=== PATIENT | female | born 1940 | race Caucasian/White ===

== ENCOUNTER → 2016-12-13 | Outpatient (CLI) | payer MEDICARE, BC, OTHER ==
--- NOTE | 2016-12-13 09:29 | CT ---
EXAMINATION TYPE: CT abdomen pelvis w con DATE OF EXAM: 12/13/2016 8:37 AM COMPARISON: Ultrasound abdomen 2016 2015 HISTORY: Bilateral flank pain, side pain CT DLP: 1398 mGycm Automated exposure control for dose reduction was used. TECHNIQUE: Helical acquisition of images was performed from the lung bases through the pelvis. CONTRAST: Performed with Oral Contrast and with IV Contrast, patient injected with 80 mL of Visipaque 320. FINDINGS: LUNG BASES: No significant abnormality is appreciated. Heart size is borderline enlarged LIVER/GB: The liver shows no mass, mild ductal dilation likely due to postcholecystectomy change. Low -attenuation in the liver may be due to fatty infiltration or hepatocellular disease. PANCREAS: No significant abnormality is seen. Duodenal diverticulum is suspected at the second and th ird portion of the duodenum SPLEEN: No significant abnormality is seen. ADRENALS: No significant abnormality is seen. KIDNEYS: Calcification present at the lower pole of the left kidney measures approximately 5 mm RETROPERITONEAL ADENOPATHY: None visualized REPRODUCTIVE ORGANS: No significant abnormality is seen URINARY BLADDER: No significant abnormality is seen. PELVIC ADENOPATHY: None visualized. OSSEOUS STRUCTURES: Patient is post right hip prosthesis. Some artifact is present. Sclerosis presen t at the sacroiliac joints left greater than right may be due to degenerative change. Degenerative di sc changes in the visualized spine, there is a spinal curvature. Associated facet arthropathy change results in some spinal stenosis in the lower lumbar spine. BOWEL: Some bowel wall thickening is present at the third and fourth portion of the duodenum, proxim al jejunum possibly due to an underlying enteritis. There is an ostomy in the left lower quadrant, re ctal stump is present in the pelvis. Diverticular changes associated with the colon. Partial colectom y change is present. OTHER: There may be a small hiatal hernia. IMPRESSION: DIVERTICULOSIS, POSTOP CHANGES, CORRELATE FOR POSSIBLE ENTERITIS. DEGENERATIVE DISC DISEASE AND SPINA L STENOSIS. POSSIBLE FATTY INFILTRATION OF THE LIVER AND ADDITIONAL FINDINGS ABOVE. NONOBSTRUCTIVE NE PHROLITHIASIS ON THE LEFT.
== END ==
LOC: RADCTMAIN 07:25
PROVIDERS: ATTEND Family Medicine
DX: N20.0 Calculus of kidney (principal); K57.90 Diverticulosis of intestine, part unspecified, without perforation or abscess without bleeding; M54.5 Low back pain
CPT/HCPCS: 82565; 84520; 74177; 36415; Q9967

== ENCOUNTER 2017-09-03 17:24 | Inpatient (IN) | payer MEDICARE, BC ==
--- NOTE | 2017-09-03 18:12 | ED ---
General Adult HPI - General Chief complaint: Weakness Stated complaint: decreased mobility Time Seen by Provider: 09/03/17 17:45 Source: patient, RN notes reviewed, old records reviewed Mode of arrival: ambulatory Limitations: no limitations - History of Present Illness Initial comments: Patient is 77-year-old female who presents emergency room today with a chief complaint of increased weakness. She does admit that she was recently seen and hospitalized and released for a COPD exacerbation. States she was told she had pneumonia. States that she's been on some antibiotics. States that she was in the hospital for approximately a week. Patient states that she's been home for the last day. She states that she feels like her legs are weaker. She states she feels that she cannot stand on her own without assistance. She states usually does use a walker at home but even with the walker is having a difficult time with ambulation. Patient states that when she was in the hospital they did discuss about going to a rehab facility. States she was stubborn other times does not want go wanted to go home to her house. She states she feels that she should be placed in rehab due to this weakness. She does admit that the cough congestion has improved. States she's currently still on antibiotics. She has been using her nebulizer at home improvement. Patient denies any recent fever, chills, shortness of breath, chest pain, back pain, abdominal pain, nausea or vomiting, numbness or tingling, dysuria or hematuria, constipation or diarrhea, headaches or visual changes, or any other complaints. - Related Data Home Medications Medication Instructions Recorded Confirmed ALPRAZolam [Xanax] 0.5 mg PO DAILY PRN 01/27/14 09/03/17 Albuterol Inhaler [Ventolin Hfa 2 puff INHALATION RT-Q6H PRN 06/17/16 09/03/17 Inhaler] Albuterol Nebulized [Ventolin 2.5 mg INHALATION RT-QID 06/17/16 09/03/17 Nebulized] INSULIN LISPRO (HumaLOG) [humaLOG] See Protocol SQ AC-TID 10/22/16 09/03/17 Insulin Glargine [Lantus] 87 unit SQ HS 10/22/16 09/03/17 Hydrocodone/Acetaminophen [[place] 1 tab PO TID PRN 08/25/17 09/03/17 5-325] Lisinopril [Prinivil] 5 mg PO DAILY 08/25/17 09/03/17 Rivaroxaban [Xarelto] 15 mg PO QAM 08/25/17 09/03/17 Furosemide [Lasix] 80 mg PO QAM 09/03/17 09/03/17 methylPREDNISolone Dose Pack See Taper PO DAILY 09/03/17 09/03/17 [Medrol Dose Pack] Previous Rx's Medication Instructions Recorded Atorvastatin [Lipitor] 40 mg PO HS #30 tab 06/20/16 Potassium Chloride ER [K-Dur 20] 20 meq PO BID tab.er.prt 06/20/16 Azithromycin [Zithromax] 500 mg PO Q24H #7 tab 09/01/17 Budesonide-Formot 160-4.5 Mcg 2 puff INHALATION RT-BID #1 puff 09/01/17 [Symbicort 160-4.5 Mcg Inhaler] Cephalexin [Keflex] 500 mg PO Q6HR #40 cap 09/01/17 Colchicine [Colcrys] 0.6 mg PO BID tab 09/01/17 Ipratropium-Albuterol Nebulize 3 ml INHALATION RT-QID #120 09/01/17 [Duoneb 0.5 mg-3 mg/3 ml Soln] ampul.neb Allergies Allergy/AdvReac Type Severity Reaction Status Date / Time Penicillins Allergy Unknown Verified 09/03/17 18:04 Review of Systems ROS Statement: Those systems with pertinent positive or pertinent negative responses have been documented in the HPI. ROS Other: All systems not noted in ROS Statement are negative. Past Medical History Past Medical History: Cancer, COPD, Deep Vein Thrombosis (DVT), GERD/Reflux, GI Bleed, Osteoarthritis (OA) Additional Past Medical History / Comment(s): skin cancer removed from nose History of Any Multi-Drug Resistant Organisms: None Reported, Acinetobacter ( MDRO) Past Surgical History: Bowel Resection, Cholecystectomy, Heart Catheterization, Joint Replacement, Tubal Ligation Additional Past Surgical History / Comment(s): neck fusion, cataract surgery, colostomy Past Anesthesia/Blood Transfusion Reactions: No Reported Reaction Past Psychological History: Anxiety Smoking Status: Former smoker Past Alcohol Use History: None Reported Past Drug Use History: None Reported - Past Family History Mother Family Medical History: Cancer General Exam - General Exam Comments Initial Comments: General: The patient is awake and alert, in no distress, and does not appear acutely ill. Eye: Pupils are equal, round and reactive to light, extra-ocular movements are intact. No nystagmus. There is normal conjunctiva bilaterally. No signs of icterus. Ears, nose, mouth and throat: There are moist mucous membranes and no oral lesions. Neck: The neck is supple, there is no tenderness or JVD. Cardiovascular: There is a regular rate and rhythm. No murmur, rub or gallop is appreciated. Respiratory: Lungs are clear to auscultation, respirations are non-labored, breath sounds are equal. No wheezes, stridor, rales, or rhonchi. Gastrointestinal: Soft, non-distended, non-tender abdomen without masses or organomegaly noted. There is no rebound or guarding present. No CVA tenderness. Bowel sounds are unremarkable. Musculoskeletal: Normal ROM, no tenderness. Strength 5/5. Sensation intact. Pulses equal bilaterally 2+. Neurological: A&O x 3. CN II-XII intact, There are no obvious motor or sensory deficits. Coordination appears grossly intact. Speech is normal. Skin: Skin is warm and dry and no rashes or lesions are noted. Psychiatric: Cooperative, appropriate mood & affect, normal judgment. Limitations: no limitations Course Vital Signs 09/03/17 09/03/17 17:30 19:13 Temperature 99.2 F Pulse Rate 82 89 Respiratory 18 18 Rate O2 Sat by Pulse 96 99 Oximetry EKG Findings - EKG Comments: EKG Findings:: EKG performed at 1911: A 12-lead EKG was performed and interpreted by me as showing the following: Rate is 88, and rhythm is normal sinus. There are normal QRS complexes and normal R-wave progression. ST segments have no elevation or depression, and SC segments appear normal. Medical Decision Making - Medical Decision Making patient reevaluated at this time shows no signs of distress. Her temperature was 51 of her initial labs to 149 and repeat. Patient doesn't to weakness to her legs. Denies any chest pain or shortness of breath. EKG shows no acute changes. Patient's troponin is normal at 0.065. Patient given aspirin the [facility] emergency room. Patient again pain-free at this time but will be admitted for serial enzymes. - Lab Data Result diagrams: 09/03/17 18:20 09/03/17 18:20 Lab Results 09/03/17 09/03/17 09/03/17 Range/Units 18:20 18:20 18:20 WBC (3.8-10.6) k/uL RBC (3.80-5.40) m/uL Hgb (11.4-16.0) gm/dL Hct (34.0-46.0) % MCV (80.0-100.0) fL MCH (25.0-35.0) pg MCHC (31.0-37.0) g/dL RDW (11.5-15.5) % Plt Count (150-450) k/uL Neutrophils % % Lymphocytes % % Monocytes % % Eosinophils % % Basophils % % Neutrophils # (1.3-7.7) k/uL Lymphocytes # (1.0-4.8) k/uL Monocytes # (0-1.0) k/uL Eosinophils # (0-0.7) k/uL Basophils # (0-0.2) k/uL Hypochromasia Anisocytosis PT 11.9 (9.0-12.0) sec INR 1.2 H (<1.2) APTT 22.7 (22.0-30.0) sec Sodium 139 (137-145) mmol/L Potassium 4.7 (3.5-5.1) mmol/L Chloride 107 (98-107) mmol/L Carbon Dioxide 27 (22-30) mmol/L Anion Gap 5 mmol/L BUN 37 H (7-17) mg/dL Creatinine 1.08 H (0.52-1.04) mg/dL Est GFR (MDRD) Af Amer 59 (>60 ml/min/1.73 sqM) Est GFR (MDRD) Non-Af 49 (>60 ml/min/1.73 sqM) Glucose 51 L (74-99) mg/dL POC Glucose (mg/dL) (75-99) mg/dL POC Glu Tassel Maker ID Calcium 8.5 (8.4-10.2) mg/dL Total Bilirubin 0.3 (0.2-1.3) mg/dL AST 45 H (14-36) U/L ALT 76 H (9-52) U/L Alkaline Phosphatase 67 (38-126) U/L Total Creatine Kinase (30-135) U/L CK-MB (CK-2) (0.0-2.4) ng/mL CK-MB (CK-2) Rel Index Troponin I (0.000-0.034) ng/mL NT-Pro-B Natriuret Pep 379 pg/mL Total Protein 5.0 L (6.3-8.2) g/dL Albumin 2.7 L (3.5-5.0) g/dL 09/03/17 09/03/17 09/03/17 Range/Units 18:20 18:20 19:00 WBC 10.1 (3.8-10.6) k/uL RBC 3.82 (3.80-5.40) m/uL Hgb 10.0 L (11.4-16.0) gm/dL Hct 33.1 L (34.0-46.0) % MCV 86.8 (80.0-100.0) fL MCH 26.2 (25.0-35.0) pg MCHC 30.2 L (31.0-37.0) g/dL RDW 17.9 H (11.5-15.5) % Plt Count 245 (150-450) k/uL Neutrophils % 95 % Lymphocytes % 1 % Monocytes % 4 % Eosinophils % 0 % Basophils % 0 % Neutrophils # 9.6 H (1.3-7.7) k/uL Lymphocytes # 0.1 L (1.0-4.8) k/uL Monocytes # 0.4 (0-1.0) k/uL Eosinophils # 0.0 (0-0.7) k/uL Basophils # 0.0 (0-0.2) k/uL Hypochromasia Marked Anisocytosis Slight PT (9.0-12.0) sec INR (<1.2) APTT (22.0-30.0) sec Sodium (137-145) mmol/L Potassium (3.5-5.1) mmol/L Chloride (98-107) mmol/L Carbon Dioxide (22-30) mmol/L Anion Gap mmol/L BUN (7-17) mg/dL Creatinine (0.52-1.04) mg/dL Est GFR (MDRD) Af Amer (>60 ml/min/1.73 sqM) Est GFR (MDRD) Non-Af (>60 ml/min/1.73 sqM) Glucose (74-99) mg/dL POC Glucose (mg/dL) 129 H (75-99) mg/dL POC Glu Tassel Maker ID Rebecca Lux Calcium (8.4-10.2) mg/dL Total Bilirubin (0.2-1.3) mg/dL AST (14-36) U/L ALT (9-52) U/L Alkaline Phosphatase (38-126) U/L Total Creatine Kinase 78 (30-135) U/L CK-MB (CK-2) 4.1 H* (0.0-2.4) ng/mL CK-MB (CK-2) Rel Index 5.3 Troponin I 0.065 H* (0.000-0.034) ng/mL NT-Pro-B Natriuret Pep pg/mL Total Protein (6.3-8.2) g/dL Albumin (3.5-5.0) g/dL Disposition Clinical Impression: Elevated troponin, Weakness Disposition: ADMITTED IP TO THIS HOSP Condition: Stable Referrals: Huang Barroso MD [Primary Care Provider] - 1-2 days Time of Disposition: 19:21
[2017-09-03 18:33] LABS: Anisocytosis Slight; Basophils % (A) 0 %; Eosinophils % (A) 0 %; HCT 33.1 % (34.0-46.0); Hypochromasia Marked; Lymphocytes # (A) 0.1 k/uL (1.0-4.8); Lymphocytes % (A) 1 %; MCH 26.2 pg (25.0-35.0); MCHC 30.2 g/dL (31.0-37.0); MCV 86.8 fL (80.0-100.0); Mean Platelet Volume 7.7; Monocytes # (A) 0.4 k/uL (0-1.0); Monocytes % (A) 4 %; Neutrophils # (A) 9.6 k/uL (1.3-7.7); Neutrophils % (A) 95 %; Platelet Count 245 k/uL (150-450); RBC 3.82 m/uL (3.80-5.40); RDW 17.9 % (11.5-15.5); WBC 10.1 k/uL (3.8-10.6)
--- NOTE | 2017-09-03 18:38 | XR ---
EXAMINATION TYPE: XR chest 2V DATE OF EXAM: 09/03/2017 COMPARISON: 08/25/2017 HISTORY: Weakness TECHNIQUE: Frontal and lateral views of the chest are obtained. FINDINGS: There is some linear density at the lateral left lung base. The other lung benavides are robert r. Heart size is normal. Thoracic aorta is atheromatous. There is spurring in the thoracic spine. IMPRESSION: Mild scarring or subsegmental atelectasis at the left lung base. No heart failure. No si gnificant change compared to last exam.
[2017-09-03 18:43] LABS: INR 1.2 (<1.2); Partial Thromboplastin Time 22.7 sec (22.0-30.0); Prothrombin Time 11.9 sec (9.0-12.0)
[2017-09-03 18:44] LABS: Albumin 2.7 g/dL (3.5-5.0); Calcium 8.5 mg/dL (8.4-10.2); Potassium 4.7 mmol/L (3.5-5.1); Total Bilirubin 0.3 mg/dL (0.2-1.3)
[2017-09-03 19:02] LABS: Glucose,Whole Blood 129 mg/dL (75-99)
[2017-09-03 19:16] LABS: Creatine Kinase MB 4.1 ng/mL (0.0-2.4); Troponin I 0.065 ng/mL (0.000-0.034)
[2017-09-03] MEDS ORDERED: ASPIRIN 81 MG PO STA (19:20)
[2017-09-03] MEDS ORDERED: SODIUM CHLORIDE 0.9% 1,000 ML IV ONE (19:21)
[2017-09-03] MEDS ORDERED: ALBUTEROL NEBULIZED 2.5 MG/3 ML INHALATION PRN (19:26)
[2017-09-03 19:54] LABS: Glucose,Whole Blood 116 mg/dL (75-99)
[2017-09-03 20:04] LABS: Appearance,Urine Clear (Clear); Bacteria,Urine Rare /hpf; Bilirubin,Urine Negative (Negative); Blood,Urine Small (Negative); Color,Urine Yellow; Glucose,Urine (UA) Negative (Negative); Hyaline Casts,Urine 3 /lpf (0-2); Ketones,Urine Negative (Negative); Leukocyte Esterase,Urine Small (Negative); Nitrite,Urine Negative (Negative); Protein,Urine 1+ (Negative); RBC,Urine 7 /hpf (0-5); Specific Gravity,Urine 1.018 (1.001-1.035); Squamous Epithelial Cell,Urine 3 /hpf (0-4); Urobilinogen,Urine <2.0 mg/dL (<2.0); WBC,Urine 4 /hpf (0-5)
[2017-09-03] MEDS: ALBUTEROL NEBULIZED 2.5 MG/3 ML INHALATION SCH (20:48)
[2017-09-03] MEDS: SYMBICORT 160-4.5 MCG INHALER INHALATION SCH (20:48)
[2017-09-03] MEDS: ATORVASTATIN 40 MG TAB PO SCH (21:18)
[2017-09-03 21:19] LABS: Glucose,Whole Blood 182 mg/dL (75-99)
[2017-09-03] MEDS: ALPRAZolam 0.5 MG TAB PO PRN (21:22)
[2017-09-03] MEDS: INSULIN ASPART 100 UNIT/ML 1 ML 10 ML VIAL SQ SCH (21:22)
[2017-09-03 21:50] VITALS: BMI 32.3
[2017-09-03] MEDS: INSULIN DETEMIR 100 UNIT/ML 10 ML VIAL SQ SCH (22:02)
[2017-09-03] MEDS: CEPHALEXIN 500 MG CAP PO SCH (23:49)
[2017-09-04] MEDS: NITROGLYCERIN OINT 1 INCH/GM PACKET TOPICAL SCH ×3 (00:26→11:51)
[2017-09-04 01:47] LABS: Creatine Kinase MB 4.6 ng/mL (0.0-2.4); Troponin I 0.052 ng/mL (0.000-0.034)
[2017-09-04 05:56] LABS: Glucose,Whole Blood 77 mg/dL (75-99)
[2017-09-04] MEDS: CEPHALEXIN 500 MG CAP PO SCH ×4 (06:17→23:24)
[2017-09-04] MEDS: INSULIN ASPART 100 UNIT/ML 1 ML 10 ML VIAL SQ SCH ×6 (06:17→21:12)
[2017-09-04 06:30] LABS: Cholesterol 104 mg/dL (<200); HDL Cholesterol 60 mg/dL (40-60); LDL Cholesterol,Calculated 30 mg/dL (0-99); Triglycerides 71 mg/dL (<150)
[2017-09-04 06:48] LABS: Creatine Kinase MB 4.4 ng/mL (0.0-2.4); Troponin I 0.051 ng/mL (0.000-0.034)
[2017-09-04] MEDS: SYMBICORT 160-4.5 MCG INHALER INHALATION SCH ×2 (08:10→20:49)
[2017-09-04] MEDS: ALBUTEROL NEBULIZED 2.5 MG/3 ML INHALATION SCH ×2 (08:10→11:08)
[2017-09-04] MEDS: AZITHROMYCIN 500 MG TAB PO SCH (08:38)
[2017-09-04] MEDS: RIVAROXABAN 15 MG TAB PO SCH (08:38)
[2017-09-04] MEDS: FUROSEMIDE 80 MG TAB PO SCH (08:38)
[2017-09-04] MEDS: LISINOPRIL 5 MG TAB PO SCH (08:38)
[2017-09-04 08:45] LABS: Glucose,Whole Blood 41 mg/dL (75-99)
[2017-09-04 08:57] LABS: Glucose,Whole Blood 62 mg/dL (75-99)
[2017-09-04] MEDS ORDERED: ASPIRIN 325 MG TAB PO SCH (09:00)
[2017-09-04 09:09] LABS: Glucose,Whole Blood 116 mg/dL (75-99)
[2017-09-04 10:48] LABS: Glucose,Whole Blood 82 mg/dL (75-99)
--- NOTE | 2017-09-04 10:49 | P.CRDCN ---
History of Present Illness Consult date: 09/04/17 Requesting physician: Huang Barroso Reason for Consult (text): Abnormal troponins Chief complaint: Weakness History of present illness: This is a 77-year-old female with history of COPD, prior DVT, diabetes , hypertension, hyperlipidemia, prior nicotine dependence, who was recently in the hospital with exacerbation of COPD and acute respiratory failure. Cardiology had seen the patient on that admission because of abnormal troponins , not consistent with acute coronary syndrome, secondary to oxygen supply and demand mismatch. Patient states after going home she felt okay for the first day, then states that she was in the bathroom, and could not get herself up off of the toilet. She was extremely weak. She was advised to be discharged to rehab on her most recent admission here however she refused, she states now that she is more than willing to go to rehab. Patient denies any chest discomfort at home and overall her breathing is stable. Again troponins were checked in the emergency room and came back to be abnormal, cardiology consultation was requested. KG on presentation here showed a normal sinus rhythm with PACs, no acute changes noted. Chest x-ray revealed mild scarring at the left lung base with no evidence of congestive heart failure. The pressure on arrival here 146/70 with a heart rate in the 80s to 90s, 97% on room air. White blood cell count 10.1, hemoglobin 10, potassium 4.7, BUN 37, creatinine 1.0. Troponins 0.06, 0.05, 0.05. BNP 379. At the time of my examination this morning, patient has no complaints other than the fact she is hungry. Denies shortness of breath. Past Medical History Past Medical History: Cancer, COPD, Deep Vein Thrombosis (DVT), GERD/Reflux, GI Bleed, Osteoarthritis (OA) Additional Past Medical History / Comment(s): skin cancer removed from nose History of Any Multi-Drug Resistant Organisms: None Reported, Acinetobacter ( MDRO) Date of last positivie culture/infection: 2005 MDRO Source:: colostomy? Past Surgical History: Bowel Resection, Cholecystectomy, Heart Catheterization, Joint Replacement, Tubal Ligation Additional Past Surgical History / Comment(s): neck fusion, cataract surgery, colostomy Past Anesthesia/Blood Transfusion Reactions: No Reported Reaction Past Psychological History: Anxiety Smoking Status: Former smoker Past Alcohol Use History: None Reported Past Drug Use History: None Reported - Past Family History Mother Family Medical History: Cancer Medications and Allergies Home Medications Medication Instructions Recorded Confirmed Type ALPRAZolam [Xanax] 0.5 mg PO DAILY PRN 01/27/14 09/03/17 History Albuterol Inhaler [Ventolin Hfa 2 puff INHALATION RT-Q6H PRN 06/17/16 09/03/17 History Inhaler] Albuterol Nebulized [Ventolin 2.5 mg INHALATION RT-QID 06/17/16 09/03/17 History Nebulized] Atorvastatin [Lipitor] 40 mg PO HS #30 tab 06/20/16 09/03/17 Rx Potassium Chloride ER [K-Dur 20] 20 meq PO BID tab.er.prt 06/20/16 09/03/17 Rx INSULIN LISPRO (HumaLOG) [humaLOG] See Protocol SQ AC-TID 10/22/16 09/03/17 History Insulin Glargine [Lantus] 87 unit SQ HS 10/22/16 09/03/17 History Hydrocodone/Acetaminophen [[place] 1 tab PO TID PRN 08/25/17 09/03/17 History 5-325] Lisinopril [Prinivil] 5 mg PO DAILY 08/25/17 09/03/17 History Rivaroxaban [Xarelto] 15 mg PO QAM 08/25/17 09/03/17 History Azithromycin [Zithromax] 500 mg PO Q24H #7 tab 09/01/17 09/03/17 Rx Budesonide-Formot 160-4.5 Mcg 2 puff INHALATION RT-BID #1 puff 09/01/17 Rx [Symbicort 160-4.5 Mcg Inhaler] Cephalexin [Keflex] 500 mg PO Q6HR #40 cap 09/01/17 09/03/17 Rx Colchicine [Colcrys] 0.6 mg PO BID tab 09/01/17 09/03/17 Rx Ipratropium-Albuterol Nebulize 3 ml INHALATION RT-QID #120 09/01/17 09/03/17 Rx [Duoneb 0.5 mg-3 mg/3 ml Soln] ampul.neb Furosemide [Lasix] 80 mg PO QAM 09/03/17 09/03/17 History methylPREDNISolone Dose Pack See Taper PO DAILY 09/03/17 09/03/17 History [Medrol Dose Pack] Allergies Allergy/AdvReac Type Severity Reaction Status Date / Time Penicillins Allergy Unknown Verified 09/03/17 18:04 Physical Exam Vitals: Vital Signs Temp Pulse Pulse Resp BP Pulse Ox 09/04/17 08:40 97.7 F 77 16 138/64 93 L 09/04/17 08:20 80 09/04/17 08:10 80 16 93 L 09/04/17 04:00 97.1 F L 76 16 140/75 95 09/04/17 00:00 97.7 F 81 16 146/78 94 L 09/03/17 21:06 76 09/03/17 20:48 74 94 L 09/03/17 20:30 97.6 F 85 18 147/74 97 09/03/17 20:00 92 95 09/03/17 19:46 97.6 F 85 18 147/74 97 09/03/17 19:13 89 18 99 09/03/17 17:30 99.2 F 82 18 96 Intake and Output 09/03/17 09/04/17 09/04/17 22:59 06:59 14:59 Intake Total 240 Balance 240 Intake: Oral 240 Other: Voiding Method Bedpan Bedpan # Voids 1 Weight 90.7 kg 92.5 kg PHYSICAL EXAMINATION: HEENT: Head is atraumatic, normocephalic. Pupils equal, round. Neck is supple. There is no elevated jugular venous pressure. HEART EXAMINATION: Heart S1, S2 normal. No murmur or gallop heard. CHEST EXAMINATION: Lungs are clear with fine scattered wheezes ABDOMEN: Soft, nontender. Bowel sounds are heard. No organomegaly noted. EXTREMITIES:[ 2+ peripheral pulses with 1-2+ evidence of peripheral edema and evidence of open ulcerated areas. Patient also has a skin tear on the right upper extremity. NEUROLOGIC patient is awake, alert and oriented -3. . Results 09/03/17 18:20 09/03/17 18:20 Cardiac Enzymes 09/03/17 09/03/17 09/04/17 Range/Units 18:20 18:20 00:22 AST 45 H (14-36) U/L CK-MB (CK-2) 4.1 H* 4.6 H* (0.0-2.4) ng/mL Troponin I 0.065 H* 0.052 H* (0.000-0.034) ng/mL 09/04/17 Range/Units 05:47 AST (14-36) U/L CK-MB (CK-2) 4.4 H* (0.0-2.4) ng/mL Troponin I 0.051 H* (0.000-0.034) ng/mL Coagulation 09/03/17 Range/Units 18:20 PT 11.9 (9.0-12.0) sec APTT 22.7 (22.0-30.0) sec Lipids 09/04/17 Range/Units 05:47 Triglycerides 71 (<150) mg/dL Cholesterol 104 (<200) mg/dL HDL Cholesterol 60 (40-60) mg/dL CBC 09/03/17 Range/Units 18:20 WBC 10.1 (3.8-10.6) k/uL RBC 3.82 (3.80-5.40) m/uL Hgb 10.0 L (11.4-16.0) gm/dL Hct 33.1 L (34.0-46.0) % Plt Count 245 (150-450) k/uL Comprehensive Metabolic Panel 09/03/17 Range/Units 18:20 Sodium 139 (137-145) mmol/L Potassium 4.7 (3.5-5.1) mmol/L Chloride 107 (98-107) mmol/L Carbon Dioxide 27 (22-30) mmol/L BUN 37 H (7-17) mg/dL Creatinine 1.08 H (0.52-1.04) mg/dL Glucose 51 L (74-99) mg/dL Calcium 8.5 (8.4-10.2) mg/dL AST 45 H (14-36) U/L ALT 76 H (9-52) U/L Alkaline Phosphatase 67 (38-126) U/L Total Protein 5.0 L (6.3-8.2) g/dL Albumin 2.7 L (3.5-5.0) g/dL Current Medications Generic Name Dose Route Start Last Admin Trade Name Freq PRN Reason Stop Dose Admin Hydrocodone Bitart/Acetaminophen 1 each 09/03/17 19:26 [place] 5-325 PO TID PRN Pain Albuterol Sulfate 2 mg 09/03/17 19:26 Ventolin Nebulized INHALATION RT-Q6H PRN Shortness Of Breath Albuterol Sulfate 2.5 mg 09/03/17 20:00 09/04/17 08:10 Ventolin Nebulized INHALATION 2.5 mg RT-QID [facility]EN[facility] Administration Alprazolam 0.5 mg 09/03/17 19:26 09/03/17 21:22 Xanax PO 0.5 mg DAILY PRN Administration Anxiety Aspirin 325 mg 09/04/17 09:00 09/04/17 08:38 Aspirin PO 325 mg DAILY SERENITY Administration Atorvastatin Calcium 40 mg 09/03/17 21:00 09/03/17 21:18 Lipitor PO Not Given HS SERENITY Azithromycin 500 mg 09/04/17 09:00 09/04/17 08:38 Zithromax PO 09/08/17 09:01 500 mg Q24H [facility]EN[facility] Administration Budesonide/Formoterol Fumarate 2 puff 09/03/17 20:00 09/04/17 08:10 Symbicort 160-4.5 Mcg Inhaler INHALATION 2 puff RT-BID [facility]ENITY Administration Cephalexin 500 mg 09/04/17 00:00 09/04/17 06:17 Keflex PO 09/11/17 18:01 500 mg Q6HR [facility]EN[facility] Administration Furosemide 80 mg 09/04/17 09:00 09/04/17 08:38 Lasix PO 80 mg QAM [facility] Administration Sodium Chloride 1,000 mls @ 20 mls/hr 09/03/17 19:21 09/04/17 00:27 Saline 0.9% IV 09/04/17 19:20 Not Given .Q24H ONE Insulin Aspart 0 unit 09/03/17 21:00 09/04/17 06:17 Novolog SQ Not Given ACHS [facility] Protocol Insulin Detemir 40 unit 09/03/17 21:45 09/03/17 22:02 Levemir SQ 40 unit HS [facility]EN[facility] Administration Lisinopril 5 mg 09/04/17 09:00 09/04/17 08:38 Zestril PO 5 mg DAILY [facility]EN[facility] Administration Nitroglycerin 0.5 inch 09/04/17 00:00 09/04/17 06:16 Nitro-Bid Oint TOPICAL Not Given Q6HR [facility] Rivaroxaban 15 mg 09/04/17 09:00 09/04/17 08:38 Xarelto PO 15 mg QAM [facility] Administration Intake and Output 09/03/17 09/04/17 09/04/17 22:59 06:59 14:59 Intake Total 240 Balance 240 Intake: Oral 240 Other: Voiding Method Bedpan Bedpan # Voids 1 Weight 90.7 kg 92.5 kg 09/03/17 18:20 09/03/17 18:20 EKG Interpretations (text) EKG shows a normal sinus rhythm with PACs Assessment and Plan Plan: Assessment and plan #1 symptoms of bilateral lateral leg weakness and generalized fatigue #2 abnormal troponins, not consistent with acute coronary syndrome, likely secondary to oxygen supply and demand mismatch. On review of patient's prior admissions, the troponins are consistently within this range. Echocardiogram with Doppler study performed the end of July revealed an ejection fraction of 55-60%. #3 COPD with recent hospitalization for exacerbation #4 hypertension # 5 diabetes #6 hyperlipidemia #7 acute on chronic kidney disease #8 history of DVT Plan From cardiology's perspective, we'll decrease her aspirin to 81 mg daily and continue other medications. Troponin abnormality not consistent with acute coronary syndrome. We will follow this patient with you now on an as-needed basis only, please don't hesitate to call with any questions. DNP note has been reviewed, I agree with a documented findings and plan of care. Patient was seen and examined.
[2017-09-04] MEDS: IPRATROPIUM-ALBUTEROL 3 ML NEB INHALATION SCH ×3 (11:25→20:48)
[2017-09-04 11:38] LABS: Glucose,Whole Blood 63 mg/dL (75-99)
[2017-09-04 11:49] LABS: Glucose,Whole Blood 146 mg/dL (75-99)
--- NOTE | 2017-09-04 12:48 | P.PN ---
Progress Note - Text Admitted with weakness coronary consulted for borderline abnormal troponins once again in the setting of chronic renal failure GFR 50. Sinus mechanism with occasional PVCs on ECG Please see full dictation by nurse practitioner
[2017-09-04 14:47] LABS: Hemoglobin A1C 7.7 % (4.0-6.0)
--- NOTE | 2017-09-04 15:12 | HP ---
HISTORY AND PHYSICAL CHIEF COMPLAINT: Sudden weakness and inability to stand. HISTORY OF PRESENT ILLNESS: This is another recent admission for this 77-year-old, white female. She just went home after being treated for COPD. She was apparently on the toilet and could not get up. She did not have any chest pain, diaphoresis, etc. She had to summon somebody to help her and she is brought to the emergency room where she was found to have an elevated troponin. She denies any fever, chills, nausea, vomiting, hematemesis, melena, palpitations, focal neurologic deficits, etc. Past medical history, family history, personal and social histories are all otherwise unremarkable and unchanged from her discharge day or 2 ago. PHYSICAL EXAMINATION: Blood pressure is 119/68 with a pulse of 91, respirations of 35 and she is afebrile. In general, she appeared to be overweight and in no acute distress. Skin was dry. Lymph nodes not enlarged. Head, ears, eyes, nose, mouth, and throat were normal. Neck veins not distended. Carotids are normal. The chest demonstrated poor breath sounds but there are no significant rales or rhonchi. Cardiac exam demonstrates sinus rhythm and no murmurs or extra sounds. The abdomen is protuberant, soft, nontender without visceromegaly or masses. Extremities are normal. Neurologically she is intact. She is admitted to the hospital diagnoses: 1. Sudden onset of bilateral lower extremity weakness, etiology unknown. 2. Elevated troponin. 3. Chronic obstructive pulmonary disease. PLAN: 1. Bed rest. 2. IV fluids. 3. Serial EKGs and enzymes. 4. Cardiology consult. MMODL / IJN: [id number] /
--- NOTE | 2017-09-04 15:27 | PN ---
PROGRESS NOTE DATE OF SERVICE: 09/04/2017 CHIEF COMPLAINT: Sudden onset of inability to use the lower extremities. HISTORY OF PRESENT ILLNESS: This lady seems to be doing well. She is having no respiratory difficulty and she denies chest pain. PHYSICAL EXAM: Chest is clear. The cardiac exam is normal. The abdomen is soft, nontender. IMPRESSION: 1. Generalized weakness. 2. Chronic obstructive pulmonary disease. 3. Elevated troponin. PLAN: 1. Gradually increase activity. 2. Await guidelines and recommendations from Cardiology. 3. Work on a discharge plan. MMODL / IJN: [id number] /
[2017-09-04 16:27] LABS: Glucose,Whole Blood 148 mg/dL (75-99)
[2017-09-04 20:53] LABS: Glucose,Whole Blood 143 mg/dL (75-99)
[2017-09-04] MEDS: ATORVASTATIN 40 MG TAB PO SCH (21:08)
[2017-09-04] MEDS: ALPRAZolam 0.5 MG TAB PO PRN (21:08)
[2017-09-04] MEDS: COLCHICINE 0.6 MG TAB PO SCH (21:10)
[2017-09-04] MEDS: INSULIN DETEMIR 100 UNIT/ML 10 ML VIAL SQ SCH (21:13)
[2017-09-05 01:35] LABS: Glucose,Whole Blood 157 mg/dL (75-99)
[2017-09-05] MEDS: HYDROcodone/APAP 5-325MG 1 EACH TAB PO PRN ×2 (02:08→21:00)
[2017-09-05 05:44] LABS: Anisocytosis Slight; Basophils % (A) 0 %; Eosinophils # (A) 0.1 k/uL (0-0.7); Eosinophils % (A) 1 %; HCT 26.6 % (34.0-46.0); Hypochromasia Marked; Lymphocytes # (A) 0.5 k/uL (1.0-4.8); Lymphocytes % (A) 8 %; MCH 26.6 pg (25.0-35.0); MCHC 30.3 g/dL (31.0-37.0); MCV 87.8 fL (80.0-100.0); Monocytes # (A) 0.3 k/uL (0-1.0); Monocytes % (A) 5 %; Neutrophils # (A) 5.5 k/uL (1.3-7.7); Neutrophils % (A) 86 %; Platelet Count 228 k/uL (150-450); RBC 3.03 m/uL (3.80-5.40); RDW 19.7 % (11.5-15.5); WBC 6.4 k/uL (3.8-10.6)
[2017-09-05 05:45] LABS: HGB 8.1 gm/dL (11.4-16.0)
[2017-09-05 06:17] LABS: Glucose,Whole Blood 166 mg/dL (75-99)
[2017-09-05] MEDS: SYMBICORT 160-4.5 MCG INHALER INHALATION SCH ×2 (07:59→20:01)
[2017-09-05] MEDS: IPRATROPIUM-ALBUTEROL 3 ML NEB INHALATION SCH ×4 (07:59→20:02)
[2017-09-05 08:03] LABS: Glucose,Whole Blood 215 mg/dL (75-99)
[2017-09-05] MEDS: CEPHALEXIN 500 MG CAP PO SCH ×4 (08:12→23:09)
[2017-09-05] MEDS: RIVAROXABAN 15 MG TAB PO SCH (08:19)
[2017-09-05] MEDS: INSULIN ASPART 100 UNIT/ML 1 ML 10 ML VIAL SQ SCH ×7 (08:20→21:06)
[2017-09-05 09:55] LABS: Glucose,Whole Blood 212 mg/dL (75-99)
[2017-09-05] MEDS: FUROSEMIDE 80 MG TAB PO SCH (10:40)
[2017-09-05] MEDS: AZITHROMYCIN 500 MG TAB PO SCH (10:40)
[2017-09-05] MEDS: ASPIRIN 81 MG PO SCH (10:40)
[2017-09-05] MEDS: LISINOPRIL 5 MG TAB PO SCH (10:40)
[2017-09-05] MEDS: COLCHICINE 0.6 MG TAB PO SCH ×2 (10:40→21:01)
[2017-09-05 11:58] LABS: Glucose,Whole Blood 186 mg/dL (75-99)
[2017-09-05] MEDS ORDERED: BISACODYL 5 MG TABLET.DR PO STA (12:41)
--- NOTE | 2017-09-05 12:41 | P.CONS ---
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 She presents with weakness and her legs and subsequently developed bright red blood per colostomy 2 last night. Denies abdominal pain fever chills hematemesis or melena. No history of GI bleed. No history of recent endoscopic exams for more than 10 years. Hemoglobin on admission 10 presently 8.1. MCV 87. Platelet 228. INR 1.2. BUN 37. Creatinine 1.0. Troponin 0.05- 0.06. Afebrile. Last dose of Xarelto yesterday. Hemoglobin 3 weeks ago was 9.9. Evaluated by cardiology for abnormal troponins in the setting of chronic renal failure not consistent with acute coronary syndrome. Review of Systems Constitutional: Denies fever, chills, sweats, weight gain, or loss. HEENT: Negative for migraines, blurred vision or loss, earaches, drainage, tinnitus, oral mucosal lesions, dysphagia, or odynophagia. CARDIAC: Negative for chest pain, arrhythmias, or palpitation. RESPIRATORY: DVT. Negative for shortness of breath, hemoptysis, cough, or sputum production. GI: See HPI for pertinent findings. : Negative for hematuria, urgency, frequency, polyuria, or dysuria. GYNc: Denies possibility of . Negative vaginal discharge. MUSCULOSKELETAL: Negative for muscle aches, swelling, arthritis, and arthralgias. NEUROLOGIC: Negative for stroke or TIA. ENDOCRINE: Negative for thyroid problems. SKIN: Negative for rash or itching. PSYCHIATRIC: Negative history for depression and anxiety Past Medical History Past Medical History: Cancer, COPD, Deep Vein Thrombosis (DVT), GERD/Reflux, GI Bleed, Osteoarthritis (OA) Additional Past Medical History / Comment(s): skin cancer removed from nose History of Any Multi-Drug Resistant Organisms: None Reported, Acinetobacter ( MDRO) Year Discovered:: 2005 MDRO Source:: colostomy? Past Surgical History: Bowel Resection, Cholecystectomy, Heart Catheterization, Joint Replacement, Tubal Ligation Additional Past Surgical History / Comment(s): neck fusion, cataract surgery, colostomy Past Anesthesia/Blood Transfusion Reactions: No Reported Reaction Past Psychological History: Anxiety Smoking Status: Former smoker Past Alcohol Use History: None Reported Past Drug Use History: None Reported - Past Family History Mother Family Medical History: Cancer Medications and Allergies Home Medications Medication Instructions Recorded Confirmed Type ALPRAZolam [Xanax] 0.5 mg PO DAILY PRN 01/27/14 09/03/17 History Albuterol Inhaler [Ventolin Hfa 2 puff INHALATION RT-Q6H PRN 06/17/16 09/03/17 History Inhaler] Albuterol Nebulized [Ventolin 2.5 mg INHALATION RT-QID 06/17/16 09/03/17 History Nebulized] Atorvastatin [Lipitor] 40 mg PO HS #30 tab 06/20/16 09/03/17 Rx Potassium Chloride ER [K-Dur 20] 20 meq PO BID tab.er.prt 06/20/16 09/03/17 Rx INSULIN LISPRO (HumaLOG) [humaLOG] See Protocol SQ AC-TID 10/22/16 09/03/17 History Insulin Glargine [Lantus] 87 unit SQ HS 10/22/16 09/03/17 History Hydrocodone/Acetaminophen [[place] 1 tab PO TID PRN 08/25/17 09/03/17 History 5-325] Lisinopril [Prinivil] 5 mg PO DAILY 08/25/17 09/03/17 History Rivaroxaban [Xarelto] 15 mg PO QAM 08/25/17 09/03/17 History Azithromycin [Zithromax] 500 mg PO Q24H #7 tab 09/01/17 09/03/17 Rx Budesonide-Formot 160-4.5 Mcg 2 puff INHALATION RT-BID #1 puff 09/01/17 Rx [Symbicort 160-4.5 Mcg Inhaler] Cephalexin [Keflex] 500 mg PO Q6HR #40 cap 09/01/17 09/03/17 Rx Colchicine [Colcrys] 0.6 mg PO BID tab 09/01/17 09/03/17 Rx Ipratropium-Albuterol Nebulize 3 ml INHALATION RT-QID #120 09/01/17 09/03/17 Rx [Duoneb 0.5 mg-3 mg/3 ml Soln] ampul.neb Furosemide [Lasix] 80 mg PO QAM 09/03/17 09/03/17 History methylPREDNISolone Dose Pack See Taper PO DAILY 09/03/17 09/03/17 History [Medrol Dose Pack] Allergies Allergy/AdvReac Type Severity Reaction Status Date / Time Penicillins Allergy Unknown Verified 09/03/17 18:04 Physical Exam Vitals: Vital Signs Temp Pulse Pulse Resp BP Pulse Ox 09/05/17 11:17 92 09/05/17 11:11 90 09/05/17 08:25 97.5 F L 90 16 109/52 95 09/05/17 08:10 98 09/05/17 08:01 98 09/05/17 04:00 97.2 F L 98 20 109/49 09/05/17 00:00 96.4 F L 87 20 109/50 98 09/04/17 21:05 82 09/04/17 20:50 82 09/04/17 20:00 98.1 F 88 124/53 97 09/04/17 16:25 97.6 F 81 16 156/62 92 L 09/04/17 16:20 79 09/04/17 16:08 84 92 L Intake and Output 09/04/17 09/05/17 09/05/17 22:59 06:59 14:59 Intake Total 240 Balance 240 Intake: Oral 240 Other: Voiding Method Bedpan Bedpan Bedpan # Voids 1 1 Weight 92.5 kg General appearance: The patient is alert, oriented, in no acute distress. HET: Head is normocephalic and atraumatic. Pupils are equal and reactive. Oropharynx is clear without lesions. Neck: Supple without lymphadenopathy. Trachea midline. Heart: S1 S2. Regular rate and rhythm. Lungs: No crackles or wheezes are heard. Abdomen: Soft, right sided ostomy with no collected bulb blood in bad but bright red blood emanating from os, nontender, nondistended with bowel sounds. No peritoneal signs. No palpable organomegaly or masses. Extremities: Normal skin color and turgor. No cyanosis, rash, ulceration, clubbing, or edema. Radial and pedal pulses are 2/4 bilaterally. Neurological: No focal deficits. Strength and sensation are grossly intact. Results CBC & Chem 7: 09/05/17 05:32 09/03/17 18:20 Labs: Abnormal Lab Results - Last 24 Hours (Table) 09/04/17 09/04/17 09/04/17 Range/Units 00:22 16:16 20:51 RBC (3.80-5.40) m/uL Hgb (11.4-16.0) gm/dL Hct (34.0-46.0) % MCHC (31.0-37.0) g/dL RDW (11.5-15.5) % Lymphocytes # (1.0-4.8) k/uL POC Glucose (mg/dL) 148 H 143 H (75-99) mg/dL Hemoglobin A1c 7.7 H (4.0-6.0) % 09/05/17 09/05/17 09/05/17 Range/Units 01:33 05:32 06:15 RBC 3.03 L (3.80-5.40) m/uL Hgb 8.1 L D (11.4-16.0) gm/dL Hct 26.6 L (34.0-46.0) % MCHC 30.3 L (31.0-37.0) g/dL RDW 19.7 H (11.5-15.5) % Lymphocytes # 0.5 L (1.0-4.8) k/uL POC Glucose (mg/dL) 157 H 166 H (75-99) mg/dL Hemoglobin A1c (4.0-6.0) % 09/05/17 09/05/17 09/05/17 Range/Units 07:51 09:53 11:56 RBC (3.80-5.40) m/uL Hgb (11.4-16.0) gm/dL Hct (34.0-46.0) % MCHC (31.0-37.0) g/dL RDW (11.5-15.5) % Lymphocytes # (1.0-4.8) k/uL POC Glucose (mg/dL) 215 H 212 H 186 H (75-99) mg/dL Hemoglobin A1c (4.0-6.0) % Assessment and Plan (1) Acute GI bleeding Narrative/Plan: 77-year-old female with a history of perforated diverticulitis with colostomy creation and reversal with subsequent perforated bowel 11 years ago after undergoing exploratory laparotomy for large complex pelvic cyst removal. 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 Etiology of bleed could be diverticular in nature however other pathology such as duodenal ulcer disease or neoplasia cannot be excluded. Current Visit: Yes Status: Acute Code(s): K92.2 - GASTROINTESTINAL HEMORRHAGE, UNSPECIFIED SNOMED Code(s): 08847223 (2) Acute blood loss anemia Current Visit: Yes Status: Acute Code(s): D62 - ACUTE POSTHEMORRHAGIC ANEMIA SNOMED Code(s): 070580243 (3) History of colostomy Current Visit: Yes Status: Acute Code(s): Z98.890 - OTHER SPECIFIED POSTPROCEDURAL STATES SNOMED Code(s): 825402723 (4) History of DVT (deep vein thrombosis) Current Visit: Yes Status: Resolved Code(s): Z86.718 - PERSONAL HISTORY OF OTHER VENOUS THROMBOSIS AND EMBOLISM SNOMED Code(s): 457699460 Plan: 1. EGD colonoscopy evaluation tomorrow. Hold Xarelto. Clear liquids. 2. GI prophylaxis Protonix 40 mg IV twice daily. CBC monitoring. The shirt closer has discussed the risks, benefits and alternative therapies for the above-mentioned procedure and for both sedation/analgesia as well as necessary blood product administration, if indicated, as they pertain to this patient. The patient has indicated understanding and acceptance of the risks and procedures discussed. Thank you for this kind referral and the opportunity to participate in the care of your patient. This consultation was discussed with Dr. Ferreira. The impression and plan of care have been directed as dictated.
[2017-09-05 14:44] LABS: Anisocytosis Slight; Basophils % (A) 1 %; Eosinophils % (A) 1 %; HCT 26.5 % (34.0-46.0); HGB 7.9 gm/dL (11.4-16.0); Hypochromasia Marked; Lymphocytes # (A) 0.5 k/uL (1.0-4.8); Lymphocytes % (A) 8 %; MCH 26.6 pg (25.0-35.0); MCHC 29.8 g/dL (31.0-37.0); MCV 89.1 fL (80.0-100.0); Monocytes # (A) 0.3 k/uL (0-1.0); Monocytes % (A) 5 %; Neutrophils # (A) 5.4 k/uL (1.3-7.7); Neutrophils % (A) 85 %; Platelet Count 230 k/uL (150-450); RBC 2.97 m/uL (3.80-5.40); RDW 17.7 % (11.5-15.5); WBC 6.4 k/uL (3.8-10.6)
[2017-09-05] MEDS ORDERED: MAGNESIUM CITRATE 296 ML BOTTLE PO ONE (15:00)
[2017-09-05 16:40] LABS: Glucose,Whole Blood 127 mg/dL (75-99)
[2017-09-05] MEDS ORDERED: POLYETHYLENE GLYCOL LYTES SOLN 4,000 ML SOLN.RECON PO ONE (18:00)
[2017-09-05] MEDS: ALPRAZolam 0.5 MG TAB PO PRN (21:00)
[2017-09-05] MEDS: ATORVASTATIN 40 MG TAB PO SCH (21:01)
[2017-09-05 21:04] LABS: Glucose,Whole Blood 115 mg/dL (75-99)
[2017-09-05 22:03] LABS: Anisocytosis Moderate; HGB 7.8 gm/dL (11.4-16.0); Hypochromasia Slight; MCH 26.5 pg (25.0-35.0); MCHC 29.9 g/dL (31.0-37.0); MCV 88.4 fL (80.0-100.0); Mean Platelet Volume 8.9; RBC 2.94 m/uL (3.80-5.40); RDW 21.4 % (11.5-15.5); WBC 7.8 k/uL (3.8-10.6)
[2017-09-05] MEDS: INSULIN DETEMIR 100 UNIT/ML 10 ML VIAL SQ SCH (22:11)
[2017-09-05 22:14] LABS: Band Neutrophils % 5 %; Lymphocytes # (M) 0.39 k/uL (1.0-4.8); Monocytes # (M) 0.55 k/uL (0-1.0); Neutrophils % (M) 83 %; Nucleated Red Blood Cells 0 /100 WBC (0-0); Total Cells Counted 100
[2017-09-05 22:15] LABS: Polychromasia Present
[2017-09-05 22:16] LABS: Ovalocytes Present
[2017-09-05 22:17] LABS: RBC Fragments Present
[2017-09-05 22:18] LABS: Platelet Count 188 k/uL (150-450)
[2017-09-05] MEDS ORDERED: SODIUM CHLORIDE 0.9% 500 ML IV ONE (23:40)
[2017-09-06 00:40] LABS: Anisocytosis Moderate; HCT 25.9 % (34.0-46.0); Hypochromasia Marked; MCH 26.9 pg (25.0-35.0); MCHC 29.3 g/dL (31.0-37.0); MCV 91.5 fL (80.0-100.0); Macrocytosis Slight; Mean Platelet Volume 8.3; Platelet Count 188 k/uL (150-450); RBC 2.83 m/uL (3.80-5.40); RDW 20.7 % (11.5-15.5); WBC 6.7 k/uL (3.8-10.6)
[2017-09-06 00:42] LABS: HGB 7.6 gm/dL (11.4-16.0)
[2017-09-06 00:45] LABS: Glucose,Whole Blood 75 mg/dL (75-99)
[2017-09-06 01:12] LABS: Glucose,Whole Blood 89 mg/dL (75-99)
[2017-09-06 03:16] LABS: Calcium 7.9 mg/dL (8.4-10.2); Magnesium 3.2 mg/dL (1.6-2.3); Phosphorous 4.4 mg/dL (2.5-4.5); Potassium 5.4 mmol/L (3.5-5.1)
[2017-09-06] MEDS ORDERED: SODIUM CHLORIDE 0.9% 1,000 ML IV ONE (04:20)
--- NOTE | 2017-09-06 06:44 | XR ---
EXAMINATION TYPE: XR chest 1V portable DATE OF EXAM: 09/06/2017 HISTORY: NG. REFERENCE: Previous study dated 09/03/2017. FINDINGS: An NG tube has been passed. Its tip is in the stomach. There is worsening left basilar airspace disease. There is an associated left-sided pleural effusion. Heart size is upper limits of normal. IMPRESSION: WORSENING LEFT BASILAR AIRSPACE DISEASE WITH A SMALL, ASSOCIATED EFFUSION.
[2017-09-06] MEDS: IPRATROPIUM-ALBUTEROL 3 ML NEB INHALATION SCH ×4 (07:01→19:51)
[2017-09-06] MEDS: SYMBICORT 160-4.5 MCG INHALER INHALATION SCH (07:01)
[2017-09-06 07:09] LABS: Glucose,Whole Blood 75 mg/dL (75-99)
[2017-09-06] MEDS: CEPHALEXIN 500 MG CAP PO SCH ×2 (07:10→14:33)
[2017-09-06] MEDS: INSULIN ASPART 100 UNIT/ML 1 ML 10 ML VIAL SQ SCH ×4 (08:14→14:33)
[2017-09-06] MEDS: SODIUM CHLORIDE 0.9% 1,000 ML IV SCH ×3 (08:15→14:34)
[2017-09-06] MEDS ORDERED: DEXAMETHASONE SOD PHOSPHATE 10 MG/ML 1 ML VIAL IV STA (09:11)
--- NOTE | 2017-09-06 09:28 | P.GSCN ---
History of Present Illness Consult date: 09/06/17 Reason for Consult: GI bleed History of present illness: This is a 77-year-old female who was admitted to the ICU with evidence of active GI bleed. Patient has a complex surgical history. She's had several bowel resection with colostomy. The patient has been on Zaroxolyn. Apparently there has been no active GI bleed since she's been in the ICU. She is scheduled for upper and lower endoscopy with Dr. Reis today. Past Medical History Past Medical History: Cancer, COPD, Deep Vein Thrombosis (DVT), GERD/Reflux, GI Bleed, Osteoarthritis (OA) Additional Past Medical History / Comment(s): skin cancer removed from nose History of Any Multi-Drug Resistant Organisms: None Reported, Acinetobacter ( MDRO) Year Discovered:: 2005 MDRO Source:: colostomy? Past Surgical History: Bowel Resection, Cholecystectomy, Heart Catheterization, Joint Replacement, Tubal Ligation Additional Past Surgical History / Comment(s): neck fusion, cataract surgery, colostomy Past Anesthesia/Blood Transfusion Reactions: No Reported Reaction Past Psychological History: Anxiety Smoking Status: Former smoker Past Alcohol Use History: None Reported Past Drug Use History: None Reported - Past Family History Mother Family Medical History: Cancer Medications and Allergies Home Medications Medication Instructions Recorded Confirmed Type ALPRAZolam [Xanax] 0.5 mg PO DAILY PRN 01/27/14 09/03/17 History Albuterol Inhaler [Ventolin Hfa 2 puff INHALATION RT-Q6H PRN 06/17/16 09/03/17 History Inhaler] Albuterol Nebulized [Ventolin 2.5 mg INHALATION RT-QID 06/17/16 09/03/17 History Nebulized] Atorvastatin [Lipitor] 40 mg PO HS #30 tab 06/20/16 09/03/17 Rx Potassium Chloride ER [K-Dur 20] 20 meq PO BID tab.er.prt 06/20/16 09/03/17 Rx INSULIN LISPRO (HumaLOG) [humaLOG] See Protocol SQ AC-TID 10/22/16 09/03/17 History Insulin Glargine [Lantus] 87 unit SQ HS 10/22/16 09/03/17 History Hydrocodone/Acetaminophen [[place] 1 tab PO TID PRN 08/25/17 09/03/17 History 5-325] Lisinopril [Prinivil] 5 mg PO DAILY 08/25/17 09/03/17 History Rivaroxaban [Xarelto] 15 mg PO QAM 08/25/17 09/03/17 History Azithromycin [Zithromax] 500 mg PO Q24H #7 tab 09/01/17 09/03/17 Rx Budesonide-Formot 160-4.5 Mcg 2 puff INHALATION RT-BID #1 puff 09/01/17 Rx [Symbicort 160-4.5 Mcg Inhaler] Cephalexin [Keflex] 500 mg PO Q6HR #40 cap 09/01/17 09/03/17 Rx Colchicine [Colcrys] 0.6 mg PO BID tab 09/01/17 09/03/17 Rx Ipratropium-Albuterol Nebulize 3 ml INHALATION RT-QID #120 09/01/17 09/03/17 Rx [Duoneb 0.5 mg-3 mg/3 ml Soln] ampul.neb Furosemide [Lasix] 80 mg PO QAM 09/03/17 09/03/17 History methylPREDNISolone Dose Pack See Taper PO DAILY 09/03/17 09/03/17 History [Medrol Dose Pack] Allergies Allergy/AdvReac Type Severity Reaction Status Date / Time Penicillins Allergy Unknown Verified 09/03/17 18:04 Surgical - Exam Vital Signs Temp Pulse Resp Pulse Ox 99.2 F 82 18 96 09/03/17 17:30 09/03/17 17:30 09/03/17 17:30 09/03/17 17:30 - General well developed, no distress - Eyes PERRL - ENT normal pinna - Neck no masses - Respiratory normal expansion - Cardiovascular Rhythm: regular - Abdomen Abdomen: soft, non tender Results - Labs 09/05/17 23:59 09/06/17 00:25 Abnormal Lab Results - Last 24 Hours (Table) 09/05/17 09/05/17 09/05/17 Range/Units 05:32 09:53 11:56 RBC 3.03 L (3.80-5.40) m/uL Hgb 8.1 L D (11.4-16.0) gm/dL Hct 26.6 L (34.0-46.0) % MCHC 30.3 L (31.0-37.0) g/dL RDW 19.7 H (11.5-15.5) % Lymphocytes # 0.5 L (1.0-4.8) k/uL Lymphocytes # (Manual) (1.0-4.8) k/uL Sodium (137-145) mmol/L Potassium (3.5-5.1) mmol/L Chloride (98-107) mmol/L BUN (7-17) mg/dL Creatinine (0.52-1.04) mg/dL POC Glucose (mg/dL) 212 H 186 H (75-99) mg/dL Calcium (8.4-10.2) mg/dL Magnesium (1.6-2.3) mg/dL 09/05/17 09/05/17 09/05/17 Range/Units 14:19 16:38 21:02 RBC 2.97 L (3.80-5.40) m/uL Hgb 7.9 L (11.4-16.0) gm/dL Hct 26.5 L (34.0-46.0) % MCHC 29.8 L (31.0-37.0) g/dL RDW 17.7 H (11.5-15.5) % Lymphocytes # 0.5 L (1.0-4.8) k/uL Lymphocytes # (Manual) (1.0-4.8) k/uL Sodium (137-145) mmol/L Potassium (3.5-5.1) mmol/L Chloride (98-107) mmol/L BUN (7-17) mg/dL Creatinine (0.52-1.04) mg/dL POC Glucose (mg/dL) 127 H 115 H (75-99) mg/dL Calcium (8.4-10.2) mg/dL Magnesium (1.6-2.3) mg/dL 09/05/17 09/05/17 09/06/17 Range/Units 21:48 23:59 00:25 RBC 2.94 L 2.83 L (3.80-5.40) m/uL Hgb 7.8 L 7.6 L (11.4-16.0) gm/dL Hct 26.0 L 25.9 L (34.0-46.0) % MCHC 29.9 L 29.3 L (31.0-37.0) g/dL RDW 21.4 H 20.7 H (11.5-15.5) % Lymphocytes # (1.0-4.8) k/uL Lymphocytes # (Manual) 0.39 L (1.0-4.8) k/uL Sodium 136 L (137-145) mmol/L Potassium 5.4 H (3.5-5.1) mmol/L Chloride 108 H (98-107) mmol/L BUN 54 H (7-17) mg/dL Creatinine 2.00 H (0.52-1.04) mg/dL POC Glucose (mg/dL) (75-99) mg/dL Calcium 7.9 L (8.4-10.2) mg/dL Magnesium 3.2 H (1.6-2.3) mg/dL Diabetes panel 09/06/17 Range/Units 00:25 Sodium 136 L (137-145) mmol/L Potassium 5.4 H (3.5-5.1) mmol/L Chloride 108 H (98-107) mmol/L Carbon Dioxide 22 (22-30) mmol/L BUN 54 H (7-17) mg/dL Creatinine 2.00 H (0.52-1.04) mg/dL Glucose 96 (74-99) mg/dL Calcium 7.9 L (8.4-10.2) mg/dL Calcium panel 09/06/17 Range/Units 00:25 Calcium 7.9 L (8.4-10.2) mg/dL Phosphorus 4.4 (2.5-4.5) mg/dL Pituitary panel 09/06/17 Range/Units 00:25 Sodium 136 L (137-145) mmol/L Potassium 5.4 H (3.5-5.1) mmol/L Chloride 108 H (98-107) mmol/L Carbon Dioxide 22 (22-30) mmol/L BUN 54 H (7-17) mg/dL Creatinine 2.00 H (0.52-1.04) mg/dL Glucose 96 (74-99) mg/dL Calcium 7.9 L (8.4-10.2) mg/dL Adrenal panel 09/06/17 Range/Units 00:25 Sodium 136 L (137-145) mmol/L Potassium 5.4 H (3.5-5.1) mmol/L Chloride 108 H (98-107) mmol/L Carbon Dioxide 22 (22-30) mmol/L BUN 54 H (7-17) mg/dL Creatinine 2.00 H (0.52-1.04) mg/dL Glucose 96 (74-99) mg/dL Calcium 7.9 L (8.4-10.2) mg/dL Assessment and Plan Assessment: GI bleed. Patient's Zaroxolyn has been held. We will be on surgical standby. Dr. Reis we'll perform upper and lower endoscopy today.
[2017-09-06] MEDS: ASPIRIN 81 MG PO SCH (09:57)
[2017-09-06] MEDS: LISINOPRIL 5 MG TAB PO SCH (09:58)
[2017-09-06] MEDS: FUROSEMIDE 80 MG TAB PO SCH (09:58)
[2017-09-06] MEDS: COLCHICINE 0.6 MG TAB PO SCH (09:58)
[2017-09-06 10:32] LABS: Anisocytosis Moderate; Basophils % (A) 0 %; Eosinophils % (A) 1 %; HCT 23.2 % (34.0-46.0); Hypochromasia Marked; Lymphocytes # (A) 0.4 k/uL (1.0-4.8); Lymphocytes % (A) 6 %; MCH 26.6 pg (25.0-35.0); MCV 88.4 fL (80.0-100.0); Macrocytosis Slight; Mean Platelet Volume 8.2; Monocytes # (A) 0.2 k/uL (0-1.0); Monocytes % (A) 4 %; Neutrophils # (A) 5.6 k/uL (1.3-7.7); Neutrophils % (A) 89 %; Platelet Count 205 k/uL (150-450); RBC 2.63 m/uL (3.80-5.40); RDW 21.5 % (11.5-15.5); WBC 6.3 k/uL (3.8-10.6)
--- NOTE | 2017-09-06 10:47 | P.NPCON ---
History of Present Illness - Reason for Consult Consult date: 09/06/17 acute renal failure - Chief Complaint Acute kidney injury and hypotension - History of Present Illness This is a 77-year-old female seen in consultation because of acute kidney injury.. Her creatinine is up to 2 from a creatinine at best of 1.08, on admission on 02/2017. Previously though her creatinine has ranged between 1.3-1.8 in 2016 and more recently has been at its best at 1.10 as of 08/28/2017 10 days ago. She was recently admitted on 08/25/2017 through 09/01/2017 with exacerbation of COPD and right hip pain from osteoarthritis with difficulty walking. She was discharged home. At home she was not doing very well with generalized weakness. She came in here on 09/03/2017, and on admission her creatinine was 1.08, hemoglobin was 10, troponin was 0.065. She started to have GI bleeding from her colostomy bag and hemoglobin went down to 7.6. She was also given IV fluids. Her history significant for COPD, perforated diverticulitis with colostomy in 1996 the second reversal with an expiratory delay lap in 2005 because of a complex left pelvic cyst and subsequent bowel perforation requiring resection and permanent colostomy in 2005. She is also known with bilateral DVT and on xaralto Currently she is transferred to ICU. She is profoundly weak opens eyes tries to follow commands and moves all her extremities. Her urine output is down to a few cc's an hour. She has a Mathew catheter in. Her blood pressure is somewhat low in the 80s to 90s. Past Medical History Past Medical History: Cancer, COPD, Deep Vein Thrombosis (DVT), GERD/Reflux, GI Bleed, Osteoarthritis (OA) Additional Past Medical History / Comment(s): skin cancer removed from nose History of Any Multi-Drug Resistant Organisms: None Reported, Acinetobacter ( MDRO) Date of last positivie culture/infection: 2005 MDRO Source:: colostomy? Past Surgical History: Bowel Resection, Cholecystectomy, Heart Catheterization, Joint Replacement, Tubal Ligation Additional Past Surgical History / Comment(s): neck fusion, cataract surgery, colostomy Past Anesthesia/Blood Transfusion Reactions: No Reported Reaction Past Psychological History: Anxiety Smoking Status: Former smoker Past Alcohol Use History: None Reported Past Drug Use History: None Reported - Past Family History Mother Family Medical History: Cancer Medications and Allergies Home Medications Medication Instructions Recorded Confirmed Type ALPRAZolam [Xanax] 0.5 mg PO DAILY PRN 01/27/14 09/03/17 History Albuterol Inhaler [Ventolin Hfa 2 puff INHALATION RT-Q6H PRN 06/17/16 09/03/17 History Inhaler] Albuterol Nebulized [Ventolin 2.5 mg INHALATION RT-QID 06/17/16 09/03/17 History Nebulized] Atorvastatin [Lipitor] 40 mg PO HS #30 tab 06/20/16 09/03/17 Rx Potassium Chloride ER [K-Dur 20] 20 meq PO BID tab.er.prt 06/20/16 09/03/17 Rx INSULIN LISPRO (HumaLOG) [humaLOG] See Protocol SQ AC-TID 10/22/16 09/03/17 History Insulin Glargine [Lantus] 87 unit SQ HS 10/22/16 09/03/17 History Hydrocodone/Acetaminophen [[place] 1 tab PO TID PRN 08/25/17 09/03/17 History 5-325] Lisinopril [Prinivil] 5 mg PO DAILY 08/25/17 09/03/17 History Rivaroxaban [Xarelto] 15 mg PO QAM 08/25/17 09/03/17 History Azithromycin [Zithromax] 500 mg PO Q24H #7 tab 09/01/17 09/03/17 Rx Budesonide-Formot 160-4.5 Mcg 2 puff INHALATION RT-BID #1 puff 09/01/17 Rx [Symbicort 160-4.5 Mcg Inhaler] Cephalexin [Keflex] 500 mg PO Q6HR #40 cap 09/01/17 09/03/17 Rx Colchicine [Colcrys] 0.6 mg PO BID tab 09/01/17 09/03/17 Rx Ipratropium-Albuterol Nebulize 3 ml INHALATION RT-QID #120 09/01/17 09/03/17 Rx [Duoneb 0.5 mg-3 mg/3 ml Soln] ampul.neb Furosemide [Lasix] 80 mg PO QAM 09/03/17 09/03/17 History methylPREDNISolone Dose Pack See Taper PO DAILY 12/06/17 12/06/17 History [Medrol Dose Pack] Allergies Allergy/AdvReac Type Severity Reaction Status Date / Time Penicillins Allergy Unknown Verified 09/03/17 18:04 Physical Exam Vitals: Vital Signs Temp Pulse Pulse Resp BP BP BP 09/06/17 07:11 77 09/06/17 07:01 81 09/06/17 07:00 83 22 92/63 09/06/17 06:40 76 20 92/63 09/06/17 06:20 79 24 95/48 09/06/17 06:00 84 20 84/45 09/06/17 05:40 81 18 84/45 09/06/17 05:20 75 20 97/47 09/06/17 05:00 80 18 81/52 09/06/17 04:40 78 81 H 91/52 09/06/17 04:20 75 60 H 101/39 09/06/17 04:00 98.2 F 77 82 46 H 91/47 09/06/17 03:40 84 72 H 91/47 09/06/17 03:20 81 22 82/45 09/06/17 03:00 80 24 84/67 09/06/17 02:40 80 25 H 84/67 09/06/17 02:30 82 30 H 84/67 09/06/17 02:20 80 26 H 82/44 09/06/17 02:00 85 86 24 91/47 82/44 09/06/17 01:40 89 25 H 91/47 09/06/17 01:30 82 32 H 91/47 09/06/17 01:20 96 29 H 95/47 09/06/17 01:02 86 29 H 95/47 09/06/17 01:00 84 32 H 102/55 09/06/17 00:00 97 F L 85 16 89/43 09/05/17 20:00 97.6 F 88 16 103/53 09/05/17 16:00 97.6 F 90 16 99/51 09/05/17 15:55 88 09/05/17 15:47 88 09/05/17 12:27 97.5 F L 88 16 100/55 09/05/17 11:17 92 09/05/17 11:11 90 Pulse Ox 09/06/17 07:11 09/06/17 07:01 09/06/17 07:00 96 09/06/17 06:40 94 L 09/06/17 06:20 09/06/17 06:00 94 L 09/06/17 05:40 09/06/17 05:20 09/06/17 05:00 09/06/17 04:40 96 09/06/17 04:20 96 09/06/17 04:00 94 L 09/06/17 03:40 94 L 09/06/17 03:20 95 09/06/17 03:00 94 L 09/06/17 02:40 95 09/06/17 02:30 92 L 09/06/17 02:20 94 L 09/06/17 02:00 93 L 09/06/17 01:40 94 L 09/06/17 01:30 95 09/06/17 01:20 94 L 09/06/17 01:02 89 L 09/06/17 01:00 95 09/06/17 00:00 94 L 09/05/17 20:00 94 L 09/05/17 16:00 95 09/05/17 15:55 09/05/17 15:47 09/05/17 12:27 97 09/05/17 11:17 09/05/17 11:11 Intake and Output 09/05/17 09/06/17 09/06/17 22:59 06:59 14:59 Intake Total 1600 450 Output Total 650 415 30 Balance -650 1185 420 Intake: IV 600 450 Sodium Chloride 0.9% 1, 600 450 000 ml @ 150 mls/hr IV . Q6H40M [facility] Rx#:[id number] Intake, IV Titration 1000 Amount Sodium Chloride 0.9% 1, 1000 000 ml @ 999 mls/hr IV . Q1H1M ONE Rx#:[id number] Output: Urine 265 30 Uretheral (Mathew) 200 Stool 650 150 Other: Voiding Method Bedpan Indwelling Catheter # Voids 1 1 Weight 94.2 kg On examination she is weak tired sleepy but arousable follows commands is profoundly weak. HEENT exam no JVP neck supple no facial asymmetry pupils are equal Lungs are clear to auscultation fair air entry bilaterally Heart sounds are unremarkable for any murmur rub gallop Abdomen soft nontender colostomy on the left lower quadrant No masses felt. Extremity exam revealed minimal edema. Warm to touch. Neurologically sleepy but arousable follows commands and moves all her activities but profoundly weak. No focal motor deficit. Results - Lab Results Most recent lab results Calcium 7.9 mg/dL (8.4-10.2) L 09/06/17 00:25 Phosphorus 4.4 mg/dL (2.5-4.5) 09/06/17 00:25 Magnesium 3.2 mg/dL (1.6-2.3) H 09/06/17 00:25 09/05/17 23:59 09/06/17 00:25 Assessment and Plan Assessment: Impression. 1. Acute kidney injury from hypotension. Creatinine baseline is 1.08 on admission and is up to 2 with oliguria. 2. Hypotension secondary to GI bleed via colostomy, and ileus with NG tube suctioning large amounts of fluid. Other causes are ruled out with a normal troponin on admission but has not been reported since transferred to ICU. 3. Chronic kidney disease creatinine 1.08 on admission but GFR is 49 mL per minute causes nephrosclerosis. 4. Via colostomy with ileus and NG tube suction draining large amounts of light yellow fluid. 5. History of COPD with recent admission and discharge 09/01/2017 6. History of bilateral DVT 7. History of colostomy 2005. Recommendation. Agree with IV fluids 150 mL's of normal saline. Would recommend transfusion to improve her blood pressure. Inotropic support if necessary after blood transfusion. Monitor I's and O's, renal profile. Suggest discontinuing of lisinopril, colchicine and Lasix Thank you for this consultation we'll continue to follow closely with you
[2017-09-06] MEDS: AZITHROMYCIN 500 MG TAB PO SCH (11:15)
--- NOTE | 2017-09-06 11:31 | P.CNPUL ---
History of Present Illness Consult date: 09/06/17 Reason for consult: other Chief complaint: GI bleed, mental status change History of present illness: Consult dated 09/06/2017 This is a 77-year-old female who was admitted to the hospital back on September 03. She apparently initially presented with decreased mobility and weakness. This is according to her daughter. The patient was recently seen in the hospital and released for a COPD exacerbation. At that time she was told she had pneumonia. She was sent home on antibiotics. Since that time, she's been at home and feeling weaker and weaker. Feels that she cannot stand on her own without assistance. She apparently does use a walker at home. She states that her respiratory complaints including shortness of breath chest congestion and cough have improved. Currently still on antibiotics. More recently, she started having bleeding from her ostomy site. She is a previous colostomy from the patient was transferred to the ICU because of GI bleed. She also has a history of colon cancer, status post colostomy DVT GERD previous GI bleed degenerative joint disease skin cancer bowel resection cholecystectomy heart catheterization joint replacement tubal ligation. The patient is on nasal O2 at 2 L and an IV of saline at 1 50 mL an hour. Hemoglobin, has dropped from 7.6 to 7.0. She's received no blood. She was made a DO NOT RESUSCITATE by her daughter. Her mental status has declined. A computed tomography scan was done. A central line will be needed. Review of Systems ROS unobtainable: due to mental status Past Medical History Past Medical History: Cancer, COPD, Deep Vein Thrombosis (DVT), GERD/Reflux, GI Bleed, Osteoarthritis (OA) Additional Past Medical History / Comment(s): skin cancer removed from nose History of Any Multi-Drug Resistant Organisms: None Reported, Acinetobacter ( MDRO) Date of last positivie culture/infection: 2005 MDRO Source:: colostomy? Past Surgical History: Bowel Resection, Cholecystectomy, Heart Catheterization, Joint Replacement, Tubal Ligation Additional Past Surgical History / Comment(s): neck fusion, cataract surgery, colostomy Past Anesthesia/Blood Transfusion Reactions: No Reported Reaction Past Psychological History: Anxiety Smoking Status: Former smoker Past Alcohol Use History: None Reported Past Drug Use History: None Reported - Past Family History Mother Family Medical History: Cancer Medications and Allergies Home Medications Medication Instructions Recorded Confirmed Type ALPRAZolam [Xanax] 0.5 mg PO DAILY PRN 01/27/14 09/03/17 History Albuterol Inhaler [Ventolin Hfa 2 puff INHALATION RT-Q6H PRN 06/17/16 09/03/17 History Inhaler] Albuterol Nebulized [Ventolin 2.5 mg INHALATION RT-QID 06/17/16 09/03/17 History Nebulized] Atorvastatin [Lipitor] 40 mg PO HS #30 tab 06/20/16 09/03/17 Rx Potassium Chloride ER [K-Dur 20] 20 meq PO BID tab.er.prt 06/20/16 09/03/17 Rx INSULIN LISPRO (HumaLOG) [humaLOG] See Protocol SQ AC-TID 10/22/16 09/03/17 History Insulin Glargine [Lantus] 87 unit SQ HS 10/22/16 09/03/17 History Hydrocodone/Acetaminophen [[place] 1 tab PO TID PRN 08/25/17 09/03/17 History 5-325] Lisinopril [Prinivil] 5 mg PO DAILY 08/25/17 09/03/17 History Rivaroxaban [Xarelto] 15 mg PO QAM 08/25/17 09/03/17 History Azithromycin [Zithromax] 500 mg PO Q24H #7 tab 09/01/17 09/03/17 Rx Budesonide-Formot 160-4.5 Mcg 2 puff INHALATION RT-BID #1 puff 09/01/17 Rx [Symbicort 160-4.5 Mcg Inhaler] Cephalexin [Keflex] 500 mg PO Q6HR #40 cap 09/01/17 09/03/17 Rx Colchicine [Colcrys] 0.6 mg PO BID tab 09/01/17 09/03/17 Rx Ipratropium-Albuterol Nebulize 3 ml INHALATION RT-QID #120 09/01/17 09/03/17 Rx [Duoneb 0.5 mg-3 mg/3 ml Soln] ampul.neb Furosemide [Lasix] 80 mg PO QAM 09/03/17 09/03/17 History methylPREDNISolone Dose Pack See Taper PO DAILY 09/03/17 09/03/17 History [Medrol Dose Pack] Allergies Allergy/AdvReac Type Severity Reaction Status Date / Time Penicillins Allergy Unknown Verified 09/03/17 18:04 Physical Exam Osteopathic Statement: *. No significant issues noted on an osteopathic structural exam other than those noted in the History and Physical/Consult. Vitals: Vital Signs Temp Pulse Pulse Resp BP BP BP 09/06/17 07:11 77 09/06/17 07:01 81 09/06/17 07:00 83 22 92/63 09/06/17 06:40 76 20 92/63 09/06/17 06:20 79 24 95/48 09/06/17 06:00 84 20 84/45 09/06/17 05:40 81 18 84/45 09/06/17 05:20 75 20 97/47 09/06/17 05:00 80 18 81/52 09/06/17 04:40 78 81 H 91/52 09/06/17 04:20 75 60 H 101/39 09/06/17 04:00 98.2 F 77 82 46 H 91/47 09/06/17 03:40 84 72 H 91/47 09/06/17 03:20 81 22 82/45 09/06/17 03:00 80 24 84/67 09/06/17 02:40 80 25 H 84/67 09/06/17 02:30 82 30 H 84/67 09/06/17 02:20 80 26 H 82/44 09/06/17 02:00 85 86 24 91/47 82/44 09/06/17 01:40 89 25 H 91/47 09/06/17 01:30 82 32 H 91/47 09/06/17 01:20 96 29 H 95/47 09/06/17 01:02 86 29 H 95/47 09/06/17 01:00 84 32 H 102/55 09/06/17 00:00 97 F L 85 16 89/43 09/05/17 20:00 97.6 F 88 16 103/53 09/05/17 16:00 97.6 F 90 16 99/51 09/05/17 15:55 88 09/05/17 15:47 88 09/05/17 12:27 97.5 F L 88 16 100/55 Pulse Ox 09/06/17 07:11 09/06/17 07:01 09/06/17 07:00 96 09/06/17 06:40 94 L 09/06/17 06:20 09/06/17 06:00 94 L 09/06/17 05:40 09/06/17 05:20 09/06/17 05:00 09/06/17 04:40 96 09/06/17 04:20 96 09/06/17 04:00 94 L 09/06/17 03:40 94 L 09/06/17 03:20 95 09/06/17 03:00 94 L 09/06/17 02:40 95 09/06/17 02:30 92 L 09/06/17 02:20 94 L 09/06/17 02:00 93 L 09/06/17 01:40 94 L 09/06/17 01:30 95 09/06/17 01:20 94 L 09/06/17 01:02 89 L 09/06/17 01:00 95 09/06/17 00:00 94 L 09/05/17 20:00 94 L 09/05/17 16:00 95 09/05/17 15:55 09/05/17 15:47 09/05/17 12:27 97 Intake and Output 09/05/17 09/06/17 09/06/17 22:59 06:59 14:59 Intake Total 1600 450 Output Total 650 415 30 Balance -650 1185 420 Intake: IV 600 450 Sodium Chloride 0.9% 1, 600 450 000 ml @ 150 mls/hr IV . Q6H40M [facility] Rx#:[id number] Intake, IV Titration 1000 Amount Sodium Chloride 0.9% 1, 1000 000 ml @ 999 mls/hr IV . Q1H1M [facility] Rx#:[id number] Output: Urine 265 30 Uretheral (Mathew) 200 Stool 650 150 Other: Voiding Method Bedpan Indwelling Catheter # Voids 1 1 Weight 94.2 kg No acute distress. The patient is very lethargic. She does answer and 1 word responses. HEENT examination is grossly unremarkable. Mucous membranes are moist. Neck supple. Full range of motion. No adenopathy thyromegaly or neck vein distention. Cardiovascular examination reveals regular rhythm rate. S1-S2 normal. No S3 or S4. No discernible murmur noted. Lungs reveal coarse rhonchi. Breath sounds are diminished. There is prolongation. A few scattered expiratory wheezes. No crackles.. Abdomen soft bowel sounds are heard. No masses or tenderness. Colostomy noted. Extremities are intact. No cyanosis or clubbing. There is diffuse anasarca. Skin reveals diffuse ecchymoses.. Neurologic examination cannot be adequately assessed. Results - Laboratory Findings CBC and BMP: 09/06/17 10:10 09/06/17 00:25 PT/INR, D-dimer PT 11.9 sec (9.0-12.0) 09/03/17 18:20 INR 1.2 (<1.2) H 09/03/17 18:20 Abnormal lab findings: Abnormal Labs 09/03/17 09/03/17 09/03/17 18:20 18:20 18:20 RBC Hgb Hct MCHC RDW Neutrophils # Lymphocytes # Lymphocytes # (Manual) INR 1.2 H Sodium Potassium Chloride BUN 37 H Creatinine 1.08 H Glucose 51 L POC Glucose (mg/dL) Hemoglobin A1c Calcium Magnesium AST 45 H ALT 76 H CK-MB (CK-2) 4.1 H* Troponin I 0.065 H* Total Protein 5.0 L Albumin 2.7 L Urine Protein Urine Blood Ur Leukocyte Esterase Urine RBC Urine Bacteria Hyaline Casts 09/03/17 09/03/17 09/03/17 18:20 19:00 19:45 RBC Hgb 10.0 L Hct 33.1 L MCHC 30.2 L RDW 17.9 H Neutrophils # 9.6 H Lymphocytes # 0.1 L Lymphocytes # (Manual) INR Sodium Potassium Chloride BUN Creatinine Glucose POC Glucose (mg/dL) 129 H Hemoglobin A1c Calcium Magnesium AST ALT CK-MB (CK-2) Troponin I Total Protein Albumin Urine Protein 1+ H Urine Blood Small H Ur Leukocyte Esterase Small H Urine RBC 7 H Urine Bacteria Rare H Hyaline Casts 3 H 09/03/17 09/03/17 09/04/17 19:52 21:17 00:22 RBC Hgb Hct MCHC RDW Neutrophils # Lymphocytes # Lymphocytes # (Manual) INR Sodium Potassium Chloride BUN Creatinine Glucose POC Glucose (mg/dL) 116 H 182 H Hemoglobin A1c Calcium Magnesium AST ALT CK-MB (CK-2) 4.6 H* Troponin I 0.052 H* Total Protein Albumin Urine Protein Urine Blood Ur Leukocyte Esterase Urine RBC Urine Bacteria Hyaline Casts 09/04/17 09/04/17 09/04/17 00:22 05:47 08:35 RBC Hgb Hct MCHC RDW Neutrophils # Lymphocytes # Lymphocytes # (Manual) INR Sodium Potassium Chloride BUN Creatinine Glucose POC Glucose (mg/dL) 41 L Hemoglobin A1c 7.7 H Calcium Magnesium AST ALT CK-MB (CK-2) 4.4 H* Troponin I 0.051 H* Total Protein Albumin Urine Protein Urine Blood Ur Leukocyte Esterase Urine RBC Urine Bacteria Hyaline Casts 09/04/17 09/04/17 09/04/17 08:50 09:06 11:26 RBC Hgb Hct MCHC RDW Neutrophils # Lymphocytes # Lymphocytes # (Manual) INR Sodium Potassium Chloride BUN Creatinine Glucose POC Glucose (mg/dL) 62 L 116 H 63 L Hemoglobin A1c Calcium Magnesium AST ALT CK-MB (CK-2) Troponin I Total Protein Albumin Urine Protein Urine Blood Ur Leukocyte Esterase Urine RBC Urine Bacteria Hyaline Casts 09/04/17 09/04/17 09/04/17 11:43 16:16 20:51 RBC Hgb Hct MCHC RDW Neutrophils # Lymphocytes # Lymphocytes # (Manual) INR Sodium Potassium Chloride BUN Creatinine Glucose POC Glucose (mg/dL) 146 H 148 H 143 H Hemoglobin A1c Calcium Magnesium AST ALT CK-MB (CK-2) Troponin I Total Protein Albumin Urine Protein Urine Blood Ur Leukocyte Esterase Urine RBC Urine Bacteria Hyaline Casts 09/05/17 09/05/17 09/05/17 01:33 05:32 06:15 RBC 3.03 L Hgb 8.1 L D Hct 26.6 L MCHC 30.3 L RDW 19.7 H Neutrophils # Lymphocytes # 0.5 L Lymphocytes # (Manual) INR Sodium Potassium Chloride BUN Creatinine Glucose POC Glucose (mg/dL) 157 H 166 H Hemoglobin A1c Calcium Magnesium AST ALT CK-MB (CK-2) Troponin I Total Protein Albumin Urine Protein Urine Blood Ur Leukocyte Esterase Urine RBC Urine Bacteria Hyaline Casts 09/05/17 09/05/17 09/05/17 07:51 09:53 11:56 RBC Hgb Hct MCHC RDW Neutrophils # Lymphocytes # Lymphocytes # (Manual) INR Sodium Potassium Chloride BUN Creatinine Glucose POC Glucose (mg/dL) 215 H 212 H 186 H Hemoglobin A1c Calcium Magnesium AST ALT CK-MB (CK-2) Troponin I Total Protein Albumin Urine Protein Urine Blood Ur Leukocyte Esterase Urine RBC Urine Bacteria Hyaline Casts 09/05/17 09/05/17 09/05/17 14:19 16:38 21:02 RBC 2.97 L Hgb 7.9 L Hct 26.5 L MCHC 29.8 L RDW 17.7 H Neutrophils # Lymphocytes # 0.5 L Lymphocytes # (Manual) INR Sodium Potassium Chloride BUN Creatinine Glucose POC Glucose (mg/dL) 127 H 115 H Hemoglobin A1c Calcium Magnesium AST ALT CK-MB (CK-2) Troponin I Total Protein Albumin Urine Protein Urine Blood Ur Leukocyte Esterase Urine RBC Urine Bacteria Hyaline Casts 09/05/17 09/05/17 09/06/17 21:48 23:59 00:25 RBC 2.94 L 2.83 L Hgb 7.8 L 7.6 L Hct 26.0 L 25.9 L MCHC 29.9 L 29.3 L RDW 21.4 H 20.7 H Neutrophils # Lymphocytes # Lymphocytes # (Manual) 0.39 L INR Sodium 136 L Potassium 5.4 H Chloride 108 H BUN 54 H Creatinine 2.00 H Glucose POC Glucose (mg/dL) Hemoglobin A1c Calcium 7.9 L Magnesium 3.2 H AST ALT CK-MB (CK-2) Troponin I Total Protein Albumin Urine Protein Urine Blood Ur Leukocyte Esterase Urine RBC Urine Bacteria Hyaline Casts 09/06/17 10:10 RBC 2.63 L Hgb 7.0 L* Hct 23.2 L MCHC 30.0 L RDW 21.5 H Neutrophils # Lymphocytes # 0.4 L Lymphocytes # (Manual) INR Sodium Potassium Chloride BUN Creatinine Glucose POC Glucose (mg/dL) Hemoglobin A1c Calcium Magnesium AST ALT CK-MB (CK-2) Troponin I Total Protein Albumin Urine Protein Urine Blood Ur Leukocyte Esterase Urine RBC Urine Bacteria Hyaline Casts - Diagnostic Findings Chest x-ray: image reviewed (Labs x-rays a medications are reviewed.) Assessment and Plan (1) Gastroesophageal reflux disease Current Visit: Yes Status: Acute Code(s): K21.9 - GASTRO-ESOPHAGEAL REFLUX DISEASE WITHOUT ESOPHAGITIS SNOMED Code(s): 137556635 (2) Skin cancer Current Visit: Yes Status: Acute Code(s): C44.90 - UNSPECIFIED MALIGNANT NEOPLASM OF SKIN, UNSPECIFIED SNOMED Code(s): 782557650 (3) CAD (coronary artery disease) Current Visit: Yes Status: Acute Code(s): I25.10 - ATHSCL HEART DISEASE OF [place] CORONARY ARTERY W/O ANG PCTRS SNOMED Code(s): 14305437 (4) Acute GI bleeding Current Visit: Yes Status: Acute Code(s): K92.2 - GASTROINTESTINAL HEMORRHAGE, UNSPECIFIED SNOMED Code(s): 33723837 (5) Acute blood loss anemia Current Visit: Yes Status: Acute Code(s): D62 - ACUTE POSTHEMORRHAGIC ANEMIA SNOMED Code(s): 592223414 (6) Generalized weakness Current Visit: Yes Status: Acute Code(s): R53.1 - WEAKNESS SNOMED Code(s) : 14752004 (7) History of colostomy Current Visit: Yes Status: Acute Code(s): Z98.890 - OTHER SPECIFIED POSTPROCEDURAL STATES SNOMED Code(s): 103452999 (8) History of DVT (deep vein thrombosis) Current Visit: Yes Status: Resolved Code(s): Z86.718 - PERSONAL HISTORY OF OTHER VENOUS THROMBOSIS AND EMBOLISM SNOMED Code(s): 664054745 (9) Acute exacerbation of chronic obstructive airways disease Current Visit: No Status: Acute Code(s): J44.1 - CHRONIC OBSTRUCTIVE PULMONARY DISEASE W (ACUTE) EXACERBATION SNOMED Code(s): 659056313 (10) Community acquired pneumonia Current Visit: No Status: Acute Code(s): J18.9 - PNEUMONIA, UNSPECIFIED ORGANISM SNOMED Code(s): 823858830 Plan: Plan dated 09/06/2017 The patient's going to have a central line placed and a computed tomography scan of the brain for mental status changes. We'll continue to watch her hemoglobin closely. Dr. Parrish I see the patient from the general surgery standpoint. Additional recommendations and suggestions are forthcoming. Prognosis is very guarded. Time with Patient: Greater than 30
[2017-09-06] MEDS ORDERED: MORPHINE SULFATE 5 MG/ML SYRINGE IV PRN (13:01)
[2017-09-06] MEDS ORDERED: MORPHINE SULFATE 5 MG/ML SYRINGE IVP ONE (13:01)
[2017-09-06] MEDS ORDERED: SCOPOLAMINE 1.5MG/72HR PATCH TRANSDERM PRN (13:01)
[2017-09-06] MEDS ORDERED: ATROPINE OPHTH SOLN 1% 5ML BTL SUBLINGUAL PRN (13:01)
[2017-09-06 13:16] VITALS: BP 86/43
[2017-09-06] MEDS ORDERED: MORPHINE SULFATE (100 MG/2 ML) 100 MG in SODIUM CHLORIDE 0.9% 100 ML IV SCH (13:30)
[2017-09-06] MEDS ORDERED: DEXAMETHASONE SOD PHOSPHATE 4 MG/ML 1 ML VIAL IV PRN (14:00)
--- NOTE | 2017-09-06 14:15 | PN ---
PROGRESS NOTE DATE OF SERVICE: 09/05/2017 CHIEF COMPLAINT: Generalized weakness and shortness of breath with elevated troponin. HISTORY OF PRESENT ILLNESS: This lady has taken a turn for the worse. She has been passing blood through her colostomy and hemoglobin is dropping. She has become more weak, pale and short of breath. She does have a GI consult and they are planning endoscopy tomorrow. PHYSICAL EXAM: She is a little bit lethargic, but awake and alert. She is slightly pale. Her chest demonstrates decreased breath sounds bilaterally with occasional rales at the bases. Cardiac exam demonstrates what sounds like sinus tachycardia. There is blood in the colostomy and there are no masses or tenderness. Bowel sounds present. IMPRESSION: 1. GI bleeding. 2. Blood loss anemia. 3. Chronic obstructive pulmonary disease. 4. Congestive heart failure. PLAN: Endoscopies as planned and in the meantime we will follow her hemoglobin and vital signs. MMODL / IJN: [id number] /
--- NOTE | 2017-09-06 14:28 | PN ---
PROGRESS NOTE DATE OF SERVICE: 09/06/17. CHIEF COMPLAINT: GI bleed, hypotension and confusion. HISTORY OF PRESENT ILLNESS: This lady's condition is deteriorating rapidly as she continues to bleed through her colostomy. Blood pressure is dropped and she has become more lethargic. Urinary output is also essentially stopped. PHYSICAL EXAM: She remains pale and hypotensive. Breath sounds are diminished bilaterally. Cardiac exam is normal. The abdomen is protuberant and soft. IMPRESSION: 1. Gastrointestinal blood loss. 2. Hypovolemic shock. 3. Acute renal failure. 4. Chronic obstructive pulmonary disease. PLAN: Moved to ICU and start resuscitative efforts. She was seen by Infectious Disease and because of her unstable cardiovascular status, renal shutdown, and poor pulmonary picture, the decision was made with the family that she be kept comfortable only and not be resuscitated. RONAL / STEVIE: [id number] /
[2017-09-06 21:28] VITALS: PULSE 76; RESP 20; TEMP 97
== END 2017-09-06 21:39 | disposition hospice, inpatient (51) | DRG 377 ==
LOC: EC 17:24 → 6SEL 19:34 → INTOOBSV 19:34 → OBSVTOIN 09-05 17:26 → 6SEL 09-05 23:42 → 6ICU 09-06 01:01
PROVIDERS: ADMIT Family Medicine; ATTEND Family Medicine
DX: K92.2 Gastrointestinal hemorrhage, unspecified (principal); J18.9 Pneumonia, unspecified organism; R57.1 Hypovolemic shock; N17.9 Acute kidney failure, unspecified; I13.0 Hypertensive heart and chronic kidney disease with heart failure and stage 1 through stage 4 chronic kidney disease, or unspecified chronic kidney disease; E11.22 Type 2 diabetes mellitus with diabetic chronic kidney disease; K56.7 Ileus, unspecified; J44.0 Chronic obstructive pulmonary disease with (acute) lower respiratory infection; I50.9 Heart failure, unspecified; J44.1 Chronic obstructive pulmonary disease with (acute) exacerbation; D50.0 Iron deficiency anemia secondary to blood loss (chronic); E78.5 Hyperlipidemia, unspecified; F41.9 Anxiety disorder, unspecified; K21.9 Gastro-esophageal reflux disease without esophagitis; N18.9 Chronic kidney disease, unspecified; I25.10 Atherosclerotic heart disease of native coronary artery without angina pectoris; I49.3 Ventricular premature depolarization; Z51.5 Encounter for palliative care; Z66 Do not resuscitate; M16.11 Unilateral primary osteoarthritis, right hip; Z79.4 Long term (current) use of insulin; Z79.899 Other long term (current) drug therapy; Z79.891 Long term (current) use of opiate analgesic; Z79.51 Long term (current) use of inhaled steroids; Z88.0 Allergy status to penicillin; Z85.828 Personal history of other malignant neoplasm of skin; Z86.718 Personal history of other venous thrombosis and embolism; Z90.49 Acquired absence of other specified parts of digestive tract; Z98.1 Arthrodesis status; Z87.891 Personal history of nicotine dependence; Z98.51 Tubal ligation status; Z93.3 Colostomy status; Z79.01 Long term (current) use of anticoagulants; Z85.038 Personal history of other malignant neoplasm of large intestine
CPT/HCPCS: 36415; 71010; 71020; 80048; 80053; 80061; 81001; 82024; 82550; 82553; 83036; 83735; 83880; 84100; 84484; 85025; 85027; 85610; 85730; 86850; 86900; 86901; 87040; 93005; 94640; 94760; 99285